=== PATIENT | male | born 1950 | race Caucasian/White ===

== ENCOUNTER 2025-02-21 10:01 | Outpatient (AMB) | payer MEDICARE, SELFPAY ==
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
[2025-02-21 10:09] VITALS: BP 138/90; PULSE 73; RESP 16; O2SAT 98; BMI 26.2
== END 2025-02-21 10:38 | disposition home or self-care (01) ==
LOC: HO.HSM 10:01
PROVIDERS: PCP Internal Medicine; Visit Provider Nurse Practitioner
DX: R29.898 Other symptoms and signs involving the musculoskeletal system (principal); R20.0 Anesthesia of skin; M54.2 Cervicalgia
CPT/HCPCS: 99204

== ENCOUNTER → 2025-02-21 10:01 | Outpatient (BNVA) | payer MEDICARE, SELFPAY | PROVIDERS: PCP Internal Medicine; Visit Provider Nurse Practitioner | DX: M54.2 Cervicalgia (principal); R20.0 Anesthesia of skin; R29.898 Other symptoms and signs involving the musculoskeletal system | CPT/HCPCS: 99202 ==